=== PATIENT | male | born 1990 | race Caucasian/White ===

== ENCOUNTER 2018-06-27 17:51 | Emergency (ER) | payer SELFPAY ==
[~2018-06-27] VITALS: Ht 162.6 cm; Wt 83.0 kg
[2018-06-27 17:55] VITALS: Ht 162.6 cm; Wt 83.0 kg
[2018-06-27 18:34] VITALS: BP 149/73
== END 2018-06-27 18:34 | disposition home or self-care (01) ==
LOC: ED 17:51
DX: R07.89 Other chest pain (principal); R50.9 Fever, unspecified